=== PATIENT | female | born 1965 | race Caucasian/White ===

== ENCOUNTER 2017-03-18 15:16 | Emergency (ER) | payer BC ==
--- NOTE | 2017-03-18 15:29 | ED ---
Chest Pain HPI - General Stated Complaint: Chest Pain Time Seen by Provider: 03/18/17 15:16 Source: patient, EMS, RN notes reviewed Mode of arrival: EMS - History of Present Illness Initial Comments: This is a 51-year-old female with a negative personal history of her heart or lung disease was brought in by EMS from the she was admitted for developing sharp stabbing pain radiating from her mid chest to her back and back again. She felt lightheaded she was pale diaphoretic with a low heart rate. It was apparently close to 10/10 severity went out of about 4/10 by so patient was given nitroglycerin and aspirin and went down to almost 0 after this. She's had no fevers chills nausea vomiting sweats. She states she's had no cough or phlegm production. She has no personal history of heart or lung disease she is a nonsmoker. She states she was just moving around somewhat adjusting her posterior well she was sitting at a meeting. She does have a family history significant for her mother having bypass surgery in her early 50s and dad with hypertension. MD Complaint: chest pain - Related Data Home Medications Medication Instructions Recorded Confirmed Black Cohosh 40 mg PO BID 03/18/17 03/18/17 Calcium Carbonate [Calcium] 600 mg PO BID 03/18/17 03/18/17 Evening [place] Oil 500 mg PO BID 03/18/17 03/18/17 Flaxseed Oil [[place]-3 Flaxseed Oil] 1,000 mg PO BID 03/18/17 03/18/17 Fluticasone Nasal [place] [Flonase 1 spray EA NOSTRIL DAILY 03/18/17 03/18/17 Nasal [place]] Garlic 1 tab PO DAILY 03/18/17 03/18/17 Glucosamine/Chondro [place] A 1 tab PO BID 03/18/17 03/18/17 [Glucosamine-Chondroitin Tab] Lutein 10 mg PO BID 03/18/17 03/18/17 Multivitamins, Thera [Multivitamin 1 tab PO DAILY 03/18/17 03/18/17 (formulary)] Tolterodine Tartrate [Detrol LA] 4 mg PO DAILY 03/18/17 03/18/17 Turmeric Root Extract [Turmeric] 500 mg PO DAILY 03/18/17 03/18/17 Ubidecarenone [Co Q-10] 100 mg PO DAILY 03/18/17 03/18/17 Vitamin E (Dl,Tocopheryl Acet) 400 unit PO DAILY 03/18/17 03/18/17 [Vitamin E] Previous Rx's Medication Instructions Recorded Nitroglycerin Sl Tabs [Nitrostat] 0.4 mg SUBLINGUAL Q5M PRN #25 tab 03/18/17 Allergies Allergy/AdvReac Type Severity Reaction Status Date / Time No Known Allergies Allergy Verified 03/18/17 15:54 Review of Systems ROS Statement: Those systems with pertinent positive or pertinent negative responses have been documented in the HPI. ROS Other: All systems not noted in ROS Statement are negative. EKG Findings - EKG Results: EKG: interpreted by MEGHA, sinus rhythm (Sinus rhythm rate 75 appear of 01 56 QRS of 86 daily since QTC of 370/413 minimal voltage criteria for LVH no acute ST-T wave changes.) General Exam - General Exam Comments Initial Comments: This is a well-developed well-nourished awake alert oriented 3 female General appearance: alert, in no apparent distress Head exam: Present: atraumatic, normocephalic, normal inspection Eye exam: Present: normal appearance, PERRL, EOMI. Absent: scleral icterus, conjunctival injection, periorbital swelling ENT exam: Present: normal exam, mucous membranes moist Neck exam: Present: normal inspection. Absent: tenderness, meningismus, lymphadenopathy Respiratory exam: Present: normal lung sounds bilaterally. Absent: respiratory distress, wheezes, rales, rhonchi, stridor Cardiovascular Exam: Present: regular rate, normal rhythm, normal heart sounds. Absent: systolic murmur, diastolic murmur, rubs, gallop, clicks GI/Abdominal exam: Present: soft, normal bowel sounds. Absent: distended, tenderness, guarding, rebound, rigid Extremities exam: Present: normal inspection, full ROM, normal capillary refill. Absent: tenderness, pedal edema, joint swelling, calf tenderness Back exam: Present: normal inspection Neurological exam: Present: alert, oriented X3, CN II-XII intact Psychiatric exam: Present: normal affect, normal mood Skin exam: Present: warm, dry, intact, normal color. Absent: rash Course Vital Signs 03/18/17 03/18/17 15:38 16:08 Temperature 98.0 F Pulse Rate 66 75 Respiratory 18 18 Rate Blood Pressure 128/78 119/74 O2 Sat by Pulse 96 97 Oximetry Chest Pain MDM - MDM The patient's had no further pain since arriving in the emergency department. X -rays are were suspicious for aortic abnormality which did not show on CAT scan of the large vessels. Patient was offered admission but would prefer to go home and follow-up near her home hospital which is [facility]. She is urged to follow with her supply chain manager her family practice doctor. She was urged take a baby aspirin daily and will be given a prescription for nitroglycerin she was also cautioned return if any problems whatsoever. Disposition Clinical Impression: Atypical chest pain Disposition: HOME SELF-CARE Condition: Good Instructions: Chest Pain (ED) Prescriptions: Nitroglycerin Sl Tabs [Nitrostat] 0.4 mg SUBLINGUAL Q5M PRN #25 tab PRN Reason: Pain Referrals: Caren Rai MD [Primary Care Provider] - 1-2 days
[2017-03-18 15:40] VITALS: RESP 18
[2017-03-18 15:53] LABS: Basophils # (A) 0.1 k/uL (0-0.2); Basophils % (A) 1 %; CH 31.1; CHCM 35.4; Eosinophils # (A) 0.3 k/uL (0-0.7); Eosinophils % (A) 5 %; HDW 2.69; HGB 12.9 gm/dL (11.4-16.0); Luc # (Auto) 0.21; Luc % (Auto) 3; Lymphocytes % (A) 29 %; MCH 30.6 pg (25.0-35.0); MCHC 34.8 g/dL (31.0-37.0); MCV 88.1 fL (80.0-100.0); Mean Platelet Volume 6.6; Monocytes # (A) 0.5 k/uL (0-1.0); Monocytes % (A) 7 %; Neutrophils # (A) 3.8 k/uL (1.3-7.7); Neutrophils % (A) 56 %; RDW 12.9 % (11.5-15.5); WBC 6.8 k/uL (3.8-10.6); WBC (Perox) 6.85
--- NOTE | 2017-03-18 15:56 | XR ---
EXAMINATION TYPE: XR chest 2V DATE OF EXAM: 03/18/2017 3:50 PM COMPARISON: NONE TECHNIQUE: PA and lateral views submitted. HISTORY: Chest pain FINDINGS: The lungs are clear and there is no pneumothorax, pleural effusion, or focal pneumonia. Prominence of the right suprahilar region. ER physician notified. No overt failure or interstitial edema. Biapic al pleural thickening. Mild degenerative change spine. IMPRESSION: 1. Right suprahilar soft tissue prominence could be on the basis of aneurysm of the aorta. Mass or ad enopathy in the differential. CT scan recommended.
[2017-03-18 16:04] LABS: ALT 36 U/L (9-52); AST 37 U/L (14-36); Alkaline Phosphatase 58 U/L (38-126); Amylase 98 U/L (30-110); Anion Gap 12 mmol/L; Blood Urea Nitrogen 21 mg/dL (7-17); Calcium 9.2 mg/dL (8.4-10.2); Carbon Dioxide 25 mmol/L (22-30); Chloride 104 mmol/L (98-107); Glucose 108 mg/dL (74-99); Non-African American GFR(MDRD) >60 (>60 ml/min/1.73 sqM); Potassium 3.7 mmol/L (3.5-5.1); Sodium 141 mmol/L (137-145); Total Bilirubin 0.5 mg/dL (0.2-1.3); Total Protein 7.3 g/dL (6.3-8.2)
[2017-03-18] MEDS ORDERED: RX INFO: IV CONTRAST WAS GIVEN 1 EACH MISC MISCELLANE PRN (16:05)
[2017-03-18 16:06] LABS: Prothrombin Time 9.9 sec (9.0-12.0)
[2017-03-18 16:16] LABS: Creatine Kinase 70 U/L (30-135)
[2017-03-18 16:30] LABS: Creatine Kinase MB 0.9 ng/mL (0.0-2.4); Troponin I <0.012 ng/mL (0.000-0.034)
[2017-03-18 16:37] LABS: Partial Thromboplastin Time 21.8 sec (22.0-30.0)
--- NOTE | 2017-03-18 16:47 | CT ---
EXAMINATION TYPE: CT angio thoracic/abd aorta DATE OF EXAM: 03/18/2017 4:36 PM COMPARISON: NONE HISTORY: Sudden, sharp mid chest pain today. CT DLP: 2653.00 mGycm Automated exposure control for dose reduction was used. TECHNIQUE: Performed without and with IV Contrast, patient injected with 100 mL of Omnipaque 350. There are 3-D post processed images.. FINDINGS: The lungs are clear of infiltrate. There is no pleural effusion. There is minimal pulmonary emphysema . There is normal contrast opacification of the thoracic aorta. There is no evidence of dissection. Asc ending aorta measures 3.5 cm. Abdominal aorta has normal size. There is patency of the celiac artery and the superior mesenteric ar neftali. There is patency of both renal arteries. There is patency of the iliac arteries. There is no retroperitoneal adenopathy. Liver spleen pancreas gallbladder appear normal. Bile ducts are not dilated. Kidneys have normal size and contour. There is no hydronephrosis. There is no ascites. Bladder distends smoothly. Appendix ap pears normal. I see no bony destructive process. There is normal appearance of the pulmonary arteries. I see no filling defects. There are no hilar ma sses. There is no mediastinal adenopathy. IMPRESSION: NO EVIDENCE OF PULMONARY EMBOLISM. NORMAL THORACIC AND ABDOMINAL AORTA. NO EVIDENCE OF STENOSIS.
[2017-03-18 17:14] VITALS: BP 150/86; PULSE 69; TEMP 98.3
== END 2017-03-18 17:13 | disposition home or self-care (01) ==
LOC: EC 15:16
DX: R07.89 Other chest pain (principal); R42 Dizziness and giddiness; Z86.79 Personal history of other diseases of the circulatory system; Z87.09 Personal history of other diseases of the respiratory system; Z79.51 Long term (current) use of inhaled steroids; Z79.899 Other long term (current) drug therapy
CPT/HCPCS: 36415; 93005; 85379; 80053; 82150; 82550; 82553; 83690; 83735; 84484; 85025; 85610; 85730; 71020; 75635; 71275; 99285; Q9967